=== PATIENT | female | born 1970 | race Caucasian/White ===

== ENCOUNTER 2016-07-25 10:33 | Emergency (ER) | payer OTHER ==
[~2016-07-25] VITALS: Ht 165.1 cm; Wt 70.4 kg
[~2016-07-25 10:33] MED LIST: 8 HOUR PAIN RE650 M1 PO; ALPRAZOLAM0.25 M2 PO; BENADRYL25 MG PO; BISACODYL5 MG PO; CELECOXIB200 MG PO; COMBIVENT RESPIM4 GM IH; ELAVIL25 MG PO; FERROUS SULFAT325 MG PO; LAMICTAL200 MG PO; LEXAPRO PO; MILK OF MAGNESI10 ML PO; MOBIC15 MG PO; NORCO 5/3251 TABLET PO; OXYCODONE HCL5 MG PO; OXYCONTIN10 MG PO; ROXICODONE5 MG PO; TOPAMAX100 MG PO; TYLENOL REGULA325 MG PO; VITAMIN D31000 UNIT PO; WELLBUTRIN XL150 MG PO
[2016-07-25] MEDS ORDERED: PERCOCET 10/1 TABLET PO (12:11)
[2016-07-25 13:00] VITALS: BP 110/74
[2016-07-25] MEDS ORDERED: BENADRYL25 MG PO (13:14)
== END 2016-07-25 13:00 | disposition home or self-care (01) ==
LOC: EME 10:33
DX: F19.10 Other psychoactive substance abuse, uncomplicated (principal); F31.9 Bipolar disorder, unspecified; G89.29 Other chronic pain; Z79.891 Long term (current) use of opiate analgesic; J44.9 Chronic obstructive pulmonary disease, unspecified; F17.200 Nicotine dependence, unspecified, uncomplicated
CPT/HCPCS: 90839; 99281; 99284

== ENCOUNTER 2017-06-14 13:00 | Emergency (ER) | payer OTHER ==
[~2017-06-14] VITALS: Ht 162.6 cm; Wt 74.3 kg
[~2017-06-14 13:00] MED LIST changes: -COMBIVENT RESPIM4 GM IH; +PERCOCET 10/1 TABLET PO
[2017-06-14 13:09] VITALS: BP 117/71
[2017-06-14] MEDS ORDERED: COMBIVENT RESPIM4 GM IH (20:42)
[2017-06-14] MEDS ORDERED: CLONIDINE HCL0.1 MG PO (20:43)
[2017-06-14] MEDS ORDERED: SUBOXONE 8 MG-1 EAC2 SL ×2 (20:45→20:51)
[2017-06-14] MEDS ORDERED: NORTRIPTYLINE H25 MG PO (20:47)
[2017-06-14] MEDS ORDERED: GABAPENTIN300 MG PO (20:48)
== END 2017-06-14 15:18 | disposition left against medical advice (07) ==
LOC: EME 13:00
DX: R29.818 Other symptoms and signs involving the nervous system (principal); Z53.21 Procedure and treatment not carried out due to patient leaving prior to being seen by health care provider

== ENCOUNTER 2017-06-14 17:18 | Inpatient (IN) | payer OTHER ==
[~2017-06-14] VITALS: Ht 163.8 cm; Wt 71.3 kg
[2017-06-14 18:53] LABS: COMMENTS - BLOOD GASES A+C+; DEVICE RA; SITE LR; TOTAL RESP RATE 18 resp/min
[2017-06-14 18:54] LABS: BICARBONATE 25.2 mEq/L (22-26); CARBOXY HGB 11.8 % (0-5); METHEMOGLOBIN 1.9 % (0-1.5); PCO2 38 mm Hg (35-45); PO2 68 mm Hg (80-100); pH 7.43 (7.35-7.45)
[2017-06-14 19:09] LABS: CHLORIDE 101 mEq/L (99-109); POTASSIUM 3.9 mEq/L (3.7-5.4); SODIUM 134 mEq/L (136-147)
[2017-06-14 19:10] LABS: MAGNESIUM 1.7 mg/dL (1.3-2.7)
[2017-06-14 19:12] LABS: GLUCOSE 105 mg/dL (70-99); TOTAL PROTEIN 6.9 g/dL (6.4-8.3)
[2017-06-14 19:14] LABS: TOTAL BILIRUBIN 0.6 mg/dL (0.0-1.0)
[2017-06-14 19:15] LABS: ALKALINE PHOSPHATASE 79 IU/L (3-129); PHOSPHORUS 3.3 mg/dL (2.5-4.9); SERUM ETHYL ALCOHOL < 10 mg/dL
[2017-06-14 19:16] LABS: CREATININE 0.9 mg/dL (0.6-1.3); GFR ESTIMATE (CALCULATED) > 59 mL/min/
[2017-06-14 19:17] LABS: AST (GOT) 24 IU/L (2-34); UREA NITROGEN (BUN) 13 mg/dL (9-23)
[2017-06-14 19:19] LABS: ALT (GPT) 19 IU/L (3-49); LIPASE 11 U/L (1.0-51.0)
[2017-06-14 19:21] LABS: HEMATOCRIT 35.8 % (36.0-46.0); MCH 31.7 PG (29.0-34.0); MCHC 33.5 G/DL (30.0-36.0); MCV 94.5 FL (83-99); PLATELET COUNT 117 K/uL (156-360); RBC DIS.WIDTH-CV 12.2 % (11.8-14.6); RBC DIS.WIDTH-SD 42.6 % (39-53); RED BLOOD COUNT 3.79 M/uL (3.80-5.20); WHITE BLOOD COUNT 9.1 K/uL (4.1-10.2)
[2017-06-14 19:25] LABS: QUANTITATIVE HCG < 4.0 MIU/ML
[2017-06-14] MEDS ORDERED: COMBIVENT RESPIM4 GM IH (20:42)
[2017-06-14] MEDS ORDERED: CLONIDINE HCL0.1 MG PO (20:43)
[2017-06-14] MEDS ORDERED: SUBOXONE 8 MG-1 EAC2 SL ×2 (20:45→20:51)
[2017-06-14] MEDS ORDERED: NORTRIPTYLINE H25 MG PO (20:47)
[2017-06-14] MEDS ORDERED: GABAPENTIN300 MG PO (20:48)
[2017-06-14 21:40] LABS: APPEARANCE SL.HAZY ((CLEAR)); BILIRUBIN NEGATIVE; BLOOD NEGATIVE; COLOR AMBER ((YELLOW)); GLUCOSE (STRIP) NEGATIVE; KETONES NEGATIVE; LEUKOCYTES LARGE; NITRITE POSITIVE; PROTEIN (STRIP) NEGATIVE; SPECIFIC GRAVITY 1.013 (1.000-1.030); UROBILINOGEN 0.2 MG/DL (0.2-1.0)
[2017-06-14 21:54] LABS: AMPHETAMINE NEGATIVE (500 ng/mL); BARBITURATES NEGATIVE (200 ng/mL); BENZODIAZEPINES PRESUMPTIVE POSITIVE (150 ng/mL); BUPRENORPHINE PRESUMPTIVE POSITIVE (10 ng/mL); COCAINE NEGATIVE (150 ng/mL); METHADONE NEGATIVE (200 ng/mL); METHAMPHETAMINE NEGATIVE (500 ng/mL); OPIATES (MORPHINE) NEGATIVE (100 ng/mL); OXYCODONE NEGATIVE (100 ng/mL); PHENCYCLIDINE NEGATIVE (25 ng/mL); PROPOXYPHENE NEGATIVE (300 ng/mL); THC CANNABINOIDS NEGATIVE (50 ng/mL); TRICYCLIC ANTIDEPRESSANTS PRESUMPTIVE POSITIVE (300 ng/mL)
[2017-06-14 21:55] LABS: BACTERIA RARE /HPF; EPITHELIAL CELLS RARE /HPF; MUCUS TRACE /LPF; RED BLOOD CELLS 0-5 /HPF (0-5); UCUL ADDED? YES; WHITE BLOOD CELLS TNTC /HPF (0-5)
[2017-06-14 22:43] LABS: BENZODIAZEPINES, URINE SCREEN Negative (200 ng/mL)
[2017-06-15 01:17] LABS: BASE EXCESS -0.7 mEq/L (-3 to +3); BICARBONATE 25.8 mEq/L (22-26); CARBOXY HGB 5.1 % (0-5); PCO2 49 mm Hg (35-45); PO2 84 mm Hg (80-100); SITE RR; pH 7.33 (7.35-7.45)
[2017-06-15 01:18] LABS: COMMENTS - BLOOD GASES C+; DEVICE NC; O2 FLOW 2 L/MIN; TOTAL RESP RATE 16 resp/min
[2017-06-15 01:28] LABS: BASOPHIL (%) 0.4 % (0-1); EOSINOPHIL (%) 0.6 % (0-5); HEMATOCRIT 37.6 % (36.0-46.0); HEMOGLOBIN 12.3 G/DL (11.9-15.5); IMMATURE GRANULOCYTE (%) 0.4 % (0.0-0.7); LYMPHOCYTE (%) 15.2 % (15-42); MCH 31.2 PG (29.0-34.0); MCHC 32.7 G/DL (30.0-36.0); MCV 95.4 FL (83-99); MONOCYTE (%) 6.3 % (3-12); MONOCYTE COUNT 0.4 K/uL (0-0.8); NEUTROPHIL (%) 77.1 % (45-76); NEUTROPHIL COUNT 5.2 K/uL (1.8-6.4); PLATELET COUNT 114 K/uL (156-360); RBC DIS.WIDTH-CV 12.2 % (11.8-14.6); RBC DIS.WIDTH-SD 42.7 % (39-53); RED BLOOD COUNT 3.94 M/uL (3.80-5.20); WHITE BLOOD COUNT 6.8 K/uL (4.1-10.2)
[2017-06-15 01:39] LABS: ALBUMIN 3.3 g/dL (3.2-4.8); CHLORIDE 109 mEq/L (99-109); POTASSIUM 3.7 mEq/L (3.7-5.4)
[2017-06-15 01:41] LABS: GLUCOSE 120 mg/dL (70-99)
[2017-06-15 01:42] LABS: SODIUM 141 mEq/L (136-147); TOTAL PROTEIN 5.5 g/dL (6.4-8.3)
[2017-06-15 01:45] LABS: ALKALINE PHOSPHATASE 65 IU/L (3-129); CREATININE 0.8 mg/dL (0.6-1.3); GFR ESTIMATE (CALCULATED) > 59 mL/min/
[2017-06-15 01:46] LABS: UREA NITROGEN (BUN) 12 mg/dL (9-23)
[2017-06-15 01:47] LABS: AST (GOT) 19 IU/L (2-34)
[2017-06-15 01:48] LABS: ALT (GPT) 16 IU/L (3-49); TOTAL BILIRUBIN 0.4 mg/dL (0.0-1.0)
[2017-06-15 08:05] VITALS: BP 142/86
[2017-06-15 11:30] VITALS: BP 112/58
[2017-06-15 16:09] VITALS: BP 92/54
[2017-06-15 18:11] LABS: BASOPHIL (%) 0.3 % (0-1); EOSINOPHIL (%) 0.3 % (0-5); HEMATOCRIT 35.4 % (36.0-46.0); HEMOGLOBIN 11.5 G/DL (11.9-15.5); IMMATURE GRANULOCYTE (%) 0.5 % (0.0-0.7); LYMPHOCYTE (%) 15.5 % (15-42); LYMPHOCYTE COUNT 0.9 K/uL (1.0-2.8); MCH 31.4 PG (29.0-34.0); MCHC 32.5 G/DL (30.0-36.0); MCV 96.7 FL (83-99); MONOCYTE (%) 5.4 % (3-12); MONOCYTE COUNT 0.3 K/uL (0-0.8); NEUTROPHIL COUNT 4.5 K/uL (1.8-6.4); PLATELET COUNT 104 K/uL (156-360); RBC DIS.WIDTH-CV 12.4 % (11.8-14.6); RBC DIS.WIDTH-SD 44.4 % (39-53); RED BLOOD COUNT 3.66 M/uL (3.80-5.20); WHITE BLOOD COUNT 5.7 K/uL (4.1-10.2)
[2017-06-15 18:33] LABS: ALBUMIN 3.3 G/DL (3.2-4.8); ALKALINE PHOSPHATASE 53 IU/L (3-129); ALT (GPT) 15 IU/L (3-49); AST (GOT) 26 IU/L (2-34); CHLORIDE 104 MEQ/L (99-109); CREATININE 0.8 MG/DL (0.6-1.3); GFR ESTIMATE (CALCULATED) > 59 mL/min/; GLUCOSE 145 mg/dL (70-99); POTASSIUM 3.8 MEQ/L (3.7-5.4); SODIUM 136 MEQ/L (136-147); TOTAL BILIRUBIN 0.4 MG/DL (0.0-1.0); TOTAL PROTEIN 5.3 G/DL (6.4-8.3); UREA NITROGEN (BUN) 10 mg/dL (9-23)
[2017-06-15 19:40] VITALS: BP 103/59
[2017-06-15 23:44] VITALS: BP 114/58
[2017-06-16 04:27] VITALS: BP 113/66
[2017-06-16 05:10] LABS: BASOPHIL (%) 0.3 % (0-1); EOSINOPHIL (%) 0 % (0-5); HEMATOCRIT 33.4 % (36.0-46.0); HEMOGLOBIN 10.6 G/DL (11.9-15.5); IMMATURE GRANULOCYTE (%) 0.5 % (0.0-0.7); LYMPHOCYTE (%) 13.6 % (15-42); LYMPHOCYTE COUNT 1.1 K/uL (1.0-2.8); MCH 30.1 PG (29.0-34.0); MCHC 31.7 G/DL (30.0-36.0); MCV 94.9 FL (83-99); MONOCYTE (%) 4.4 % (3-12); MONOCYTE COUNT 0.3 K/uL (0-0.8); NEUTROPHIL (%) 81.2 % (45-76); NEUTROPHIL COUNT 6.3 K/uL (1.8-6.4); PLATELET COUNT 108 K/uL (156-360); RBC DIS.WIDTH-CV 12.4 % (11.8-14.6); RBC DIS.WIDTH-SD 43.1 % (39-53); RED BLOOD COUNT 3.52 M/uL (3.80-5.20); WHITE BLOOD COUNT 7.7 K/uL (4.1-10.2)
[2017-06-16 05:37] LABS: CHLORIDE 107 MEQ/L (99-109); CREATININE 0.8 MG/DL (0.6-1.3); GFR ESTIMATE (CALCULATED) > 59 mL/min/; GLUCOSE 97 mg/dL (70-99); POTASSIUM 4.2 MEQ/L (3.7-5.4); SODIUM 136 MEQ/L (136-147); UREA NITROGEN (BUN) 10 mg/dL (9-23)
[2017-06-16 08:40] VITALS: BP 98/58
[2017-06-16 11:39] VITALS: BP 120/59
[2017-06-16 18:42] VITALS: BP 144/72
[2017-06-16 19:34] VITALS: BP 124/71
[2017-06-17] VITALS: BP 105/60
[2017-06-17 04:10] VITALS: BP 121/61
[2017-06-17 06:36] LABS: BASOPHIL (%) 0.2 % (0-1); EOSINOPHIL (%) 0.2 % (0-5); HEMATOCRIT 33.6 % (36.0-46.0); HEMOGLOBIN 10.6 G/DL (11.9-15.5); IMMATURE GRANULOCYTE (%) 0.3 % (0.0-0.7); LYMPHOCYTE (%) 11.1 % (15-42); LYMPHOCYTE COUNT 0.7 K/uL (1.0-2.8); MCHC 31.5 G/DL (30.0-36.0); MCV 95.2 FL (83-99); MONOCYTE COUNT 0.3 K/uL (0-0.8); NEUTROPHIL (%) 84.2 % (45-76); NEUTROPHIL COUNT 5.4 K/uL (1.8-6.4); PLATELET COUNT 120 K/uL (156-360); RBC DIS.WIDTH-CV 12.8 % (11.8-14.6); RBC DIS.WIDTH-SD 44.3 % (39-53); RED BLOOD COUNT 3.53 M/uL (3.80-5.20); WHITE BLOOD COUNT 6.5 K/uL (4.1-10.2)
[2017-06-17 07:12] LABS: CHLORIDE 102 MEQ/L (99-109); CREATININE 0.7 MG/DL (0.6-1.3); GFR ESTIMATE (CALCULATED) > 59 mL/min/; GLUCOSE 83 mg/dL (70-99); POTASSIUM 4.5 MEQ/L (3.7-5.4); SODIUM 138 MEQ/L (136-147); UREA NITROGEN (BUN) 9 mg/dL (9-23)
[2017-06-17 07:25] VITALS: BP 103/65
[2017-06-17 11:32] VITALS: BP 124/56
[2017-06-17 15:46] VITALS: BP 128/59
[2017-06-17 20:00] VITALS: BP 127/60
[2017-06-18] VITALS: BP 133/81
[2017-06-18 04:03] VITALS: BP 116/78
[2017-06-18 06:55] LABS: BASOPHIL (%) 0.1 % (0-1); EOSINOPHIL (%) 0 % (0-5); HEMATOCRIT 36.1 % (36.0-46.0); HEMOGLOBIN 11.6 G/DL (11.9-15.5); IMMATURE GRANULOCYTE (%) 0.9 % (0.0-0.7); LYMPHOCYTE (%) 7.3 % (15-42); LYMPHOCYTE COUNT 0.5 K/uL (1.0-2.8); MCH 30.1 PG (29.0-34.0); MCHC 32.1 G/DL (30.0-36.0); MCV 93.8 FL (83-99); MONOCYTE (%) 3.1 % (3-12); MONOCYTE COUNT 0.2 K/uL (0-0.8); NEUTROPHIL (%) 88.6 % (45-76); PLATELET COUNT 135 K/uL (156-360); RBC DIS.WIDTH-CV 12.7 % (11.8-14.6); RBC DIS.WIDTH-SD 43.8 % (39-53); RED BLOOD COUNT 3.85 M/uL (3.80-5.20); WHITE BLOOD COUNT 6.8 K/uL (4.1-10.2)
[2017-06-18 07:11] LABS: CHLORIDE 106 MEQ/L (99-109); CREATININE 0.5 MG/DL (0.6-1.3); GFR ESTIMATE (CALCULATED) > 59 mL/min/; POTASSIUM 4.1 MEQ/L (3.7-5.4); SODIUM 141 MEQ/L (136-147); UREA NITROGEN (BUN) 12 mg/dL (9-23)
[2017-06-18 07:13] LABS: GLUCOSE 168 mg/dL (70-99)
[2017-06-18 08:00] VITALS: BP 129/70
[2017-06-18 11:43] VITALS: BP 111/61
[2017-06-18 15:30] VITALS: BP 125/82
[2017-06-18 23:49] VITALS: BP 128/76
[2017-06-19 06:39] LABS: BASOPHIL (%) 0.1 % (0-1); EOSINOPHIL (%) 0 % (0-5); HEMATOCRIT 33.6 % (36.0-46.0); HEMOGLOBIN 10.8 G/DL (11.9-15.5); IMMATURE GRANULOCYTE (%) 1.4 % (0.0-0.7); LYMPHOCYTE (%) 6.4 % (15-42); LYMPHOCYTE COUNT 0.5 K/uL (1.0-2.8); MCH 30.5 PG (29.0-34.0); MCHC 32.1 G/DL (30.0-36.0); MCV 94.9 FL (83-99); MONOCYTE (%) 2.9 % (3-12); MONOCYTE COUNT 0.2 K/uL (0-0.8); NEUTROPHIL (%) 89.2 % (45-76); NEUTROPHIL COUNT 7.5 K/uL (1.8-6.4); PLATELET COUNT 150 K/uL (156-360); RBC DIS.WIDTH-SD 45.5 % (39-53); RED BLOOD COUNT 3.54 M/uL (3.80-5.20); WHITE BLOOD COUNT 8.4 K/uL (4.1-10.2)
[2017-06-19 07:02] LABS: CHLORIDE 104 MEQ/L (99-109); CREATININE 0.5 MG/DL (0.6-1.3); GFR ESTIMATE (CALCULATED) > 59 mL/min/; GLUCOSE 152 mg/dL (70-99); POTASSIUM 3.8 MEQ/L (3.7-5.4); SODIUM 140 MEQ/L (136-147); UREA NITROGEN (BUN) 14 mg/dL (9-23)
[2017-06-19 07:23] VITALS: BP 138/65
[2017-06-19 15:22] VITALS: BP 123/89
[2017-06-20 00:09] VITALS: BP 140/88
[2017-06-20 06:31] LABS: HEMATOCRIT 34.5 % (36.0-46.0); HEMOGLOBIN 11.2 G/DL (11.9-15.5); MCH 30.8 PG (29.0-34.0); MCHC 32.5 G/DL (30.0-36.0); MCV 94.8 FL (83-99); PLATELET COUNT 135 K/uL (156-360); RED BLOOD COUNT 3.64 M/uL (3.80-5.20); WHITE BLOOD COUNT 6.3 K/uL (4.1-10.2)
[2017-06-20 06:56] LABS: BASOPHIL (%) 0.2 % (0-1); EOSINOPHIL (%) 0 % (0-5); IMMATURE GRANULOCYTE (%) 2.5 % (0.0-0.7); LYMPHOCYTE (%) 11.9 % (15-42); LYMPHOCYTE COUNT 0.8 K/uL (1.0-2.8); MONOCYTE (%) 4.3 % (3-12); MONOCYTE COUNT 0.3 K/uL (0-0.8); NEUTROPHIL (%) 81.1 % (45-76); NEUTROPHIL COUNT 5.1 K/uL (1.8-6.4)
[2017-06-20 07:02] LABS: CHLORIDE 104 MEQ/L (99-109); CREATININE 0.6 MG/DL (0.6-1.3); GFR ESTIMATE (CALCULATED) > 59 mL/min/; GLUCOSE 138 mg/dL (70-99); SODIUM 142 MEQ/L (136-147); UREA NITROGEN (BUN) 12 mg/dL (9-23)
[2017-06-20 07:04] LABS: POTASSIUM 4.6 MEQ/L (3.7-5.4)
[2017-06-20 07:39] VITALS: BP 131/76
[2017-06-20 16:01] VITALS: BP 136/83
[2017-06-21 00:04] VITALS: BP 135/78
[2017-06-21 06:32] LABS: HEMOGLOBIN 11.8 G/DL (11.9-15.5); MCH 29.7 PG (29.0-34.0); MCHC 31.1 G/DL (30.0-36.0); MCV 95.7 FL (83-99); RBC DIS.WIDTH-SD 46.1 % (39-53); RED BLOOD COUNT 3.97 M/uL (3.80-5.20); WHITE BLOOD COUNT 7.4 K/uL (4.1-10.2)
[2017-06-21 06:38] LABS: PLATELET COUNT 192 K/uL (156-360)
[2017-06-21 07:01] LABS: ABS NEUTROPHIL COUNT 6.5; BAND NEUTROPHILS 0.9 % (0-8.0); EOSINOPHIL ABS CT 0; LYMPHOCYTES 7.8 % (15.0-45.0); METAMYELOCYTES 0.9 %; MONOCYTES 0.9 % (0-9.0); MYELOCYTES 2.6 %; PLAT.SUFFICIENCY ADEQUATE; SEG.NEUTROPHILS 86.9 % (46.0-76.0)
[2017-06-21 07:07] LABS: CHLORIDE 101 MEQ/L (99-109); CREATININE 0.6 MG/DL (0.6-1.3); GFR ESTIMATE (CALCULATED) > 59 mL/min/; GLUCOSE 141 mg/dL (70-99); POTASSIUM 4.7 MEQ/L (3.7-5.4); SODIUM 142 MEQ/L (136-147); UREA NITROGEN (BUN) 11 mg/dL (9-23)
[2017-06-21 07:29] VITALS: BP 153/97
[2017-06-21 15:42] VITALS: BP 148/92
[2017-06-21 23:59] VITALS: BP 139/88
[2017-06-22 07:17] LABS: CHLORIDE 99 MEQ/L (99-109); CREATININE 0.6 MG/DL (0.6-1.3); GFR ESTIMATE (CALCULATED) > 59 mL/min/; GLUCOSE 149 mg/dL (70-99); POTASSIUM 4.3 MEQ/L (3.7-5.4); SODIUM 139 MEQ/L (136-147); UREA NITROGEN (BUN) 14 mg/dL (9-23)
[2017-06-22 07:19] LABS: HEMATOCRIT 38.8 % (36.0-46.0); HEMOGLOBIN 12.6 G/DL (11.9-15.5); MCH 30.6 PG (29.0-34.0); MCHC 32.5 G/DL (30.0-36.0); MCV 94.2 FL (83-99); RBC DIS.WIDTH-CV 12.7 % (11.8-14.6); RBC DIS.WIDTH-SD 44.2 % (39-53); RED BLOOD COUNT 4.12 M/uL (3.80-5.20); WHITE BLOOD COUNT 8.7 K/uL (4.1-10.2)
[2017-06-22 07:39] LABS: ABS NEUTROPHIL COUNT 7.7; ATYPICAL LYMPHOCYTE 2.6 %; BAND NEUTROPHILS 0.9 % (0-8.0); EOSINOPHIL ABS CT 0; LYMPHOCYTES 3.5 % (15.0-45.0); METAMYELOCYTES 2.6 %; MONOCYTES 2.7 % (0-9.0); PLAT.SUFFICIENCY ADEQUATE; SEG.NEUTROPHILS 87.7 % (46.0-76.0)
[2017-06-22 07:41] LABS: PLATELET COUNT 257 K/uL (156-360)
[2017-06-22 08:18] VITALS: BP 156/92
[2017-06-22] MEDS ORDERED: BUPROPION HCL100 MG PO (15:18)
[2017-06-22] MEDS ORDERED: ADVAIR 250/501 DISK IH (15:19)
[2017-06-22] MEDS ORDERED: PREDNISONE5 M1 PO (15:22)
[2017-06-22] MEDS ORDERED: LEVAQUIN750 MG PO (15:23)
[2017-06-22] MEDS ORDERED: FOLIC ACID1 MG PO (15:27)
[2017-06-22] MEDS ORDERED: THIAMINE HCL100 MG PO (15:28)
[2017-06-22 16:14] VITALS: BP 150/88
== END 2017-06-22 16:38 | disposition home or self-care (01) | DRG 193 ==
LOC: EME 17:18 → EDOF 06-15 05:34 → 4EAST 06-15 05:34 → ENRESERV 06-15 05:36 → 4EAST 06-15 08:09 → ENRESERV 06-16 15:26 → 5SOUTH 06-16 18:08
PROVIDERS: Hospitalist; Internal Medicine; Physician Assistant
DX: J15.9 Unspecified bacterial pneumonia (principal); J96.01 Acute respiratory failure with hypoxia; G92 Toxic encephalopathy; J44.0 Chronic obstructive pulmonary disease with (acute) lower respiratory infection; I95.9 Hypotension, unspecified; F11.20 Opioid dependence, uncomplicated; N39.0 Urinary tract infection, site not specified; B96.20 Unspecified Escherichia coli [E. coli] as the cause of diseases classified elsewhere; T43.011A Poisoning by tricyclic antidepressants, accidental (unintentional), initial encounter; I10 Essential (primary) hypertension; F41.1 Generalized anxiety disorder; F19.10 Other psychoactive substance abuse, uncomplicated; F10.10 Alcohol abuse, uncomplicated; Y90.0 Blood alcohol level of less than 20 mg/100 ml; F31.9 Bipolar disorder, unspecified; G89.4 Chronic pain syndrome; M17.0 Bilateral primary osteoarthritis of knee; F17.200 Nicotine dependence, unspecified, uncomplicated; Z86.73 Personal history of transient ischemic attack (TIA), and cerebral infarction without residual deficits
CPT/HCPCS: 36600; 70450; 71045; 71046; 71250; 71275; 80048; 80053; 81003; 82140; 82803; 83605; 83690; 83735; 84100; 84588 90; 84702; 84999; 85025; 85025 91; 85027; 87040; 87077; 87086; 87186; 87502; 93005; 94640; 94640 76; 94799; 99202; 99281; 99285; C1751; G0480; J0456; J0572; J0574; J0696; J1650; J1885; J2060; J2310; J2543; J2920; J3411; J7030; J7040; J7050; J7512

== ENCOUNTER 2017-08-17 08:46 | Inpatient (IN) | payer OTHER ==
[~2017-08-17] VITALS: Ht 167.6 cm; Wt 81.6 kg
[~2017-08-17 08:46] MED LIST changes: +ADVAIR 250/501 DISK IH; +BUPROPION HCL100 MG PO; +CLONIDINE HCL0.1 MG PO; +COMBIVENT RESPIM4 GM IH; +FOLIC ACID1 MG PO; +GABAPENTIN300 MG PO; +LEVAQUIN750 MG PO; +NORTRIPTYLINE H25 MG PO; +PREDNISONE5 M1 PO; +SUBOXONE 8 MG-1 EAC2 SL; +THIAMINE HCL100 MG PO
[2017-08-17 09:25] LABS: BASOPHIL (%) 0.2 % (0-1); EOSINOPHIL (%) 0.3 % (0-5); HEMATOCRIT 34.6 % (36.0-46.0); HEMOGLOBIN 11.5 G/DL (11.9-15.5); LYMPHOCYTE (%) 7.8 % (15-42); LYMPHOCYTE COUNT 1.1 K/uL (1.0-2.8); MCH 31.4 PG (29.0-34.0); MCHC 33.2 G/DL (30.0-36.0); MCV 94.5 FL (83-99); MONOCYTE (%) 5.2 % (3-12); MONOCYTE COUNT 0.8 K/uL (0-0.8); NEUTROPHIL (%) 85.5 % (45-76); NEUTROPHIL COUNT 12.3 K/uL (1.8-6.4); PLATELET COUNT 142 K/uL (156-360); RBC DIS.WIDTH-SD 48.6 % (39-53); RED BLOOD COUNT 3.66 M/uL (3.80-5.20); WHITE BLOOD COUNT 14.4 K/uL (4.1-10.2)
[2017-08-17 09:34] LABS: CHLORIDE 105 mEq/L (99-109); POTASSIUM 4.2 mEq/L (3.7-5.4); SODIUM 136 mEq/L (136-147)
[2017-08-17 09:35] LABS: GLUCOSE 112 mg/dL (70-99)
[2017-08-17 09:39] LABS: CREATININE 1.2 mg/dL (0.6-1.3); GFR ESTIMATE (CALCULATED) 51 mL/min/; SERUM ETHYL ALCOHOL < 10 mg/dL
[2017-08-17 09:40] LABS: UREA NITROGEN (BUN) 21 mg/dL (9-23)
[2017-08-17 10:36] LABS: BILIRUBIN NEGATIVE; BLOOD NEGATIVE; COLOR YELLOW ((YELLOW)); GLUCOSE (STRIP) NEGATIVE; KETONES NEGATIVE; LEUKOCYTES NEGATIVE; NITRITE NEGATIVE; PROTEIN (STRIP) 30; SPECIFIC GRAVITY 1.015 (1.000-1.030); UROBILINOGEN 0.2 MG/DL (0.2-1.0)
[2017-08-17 10:37] LABS: APPEARANCE CLEAR ((CLEAR))
[2017-08-17 10:50] LABS: MAGNESIUM 1.8 mg/dL (1.3-2.7)
[2017-08-17 10:52] LABS: AMPHETAMINE NEGATIVE (500 ng/mL); BARBITURATES NEGATIVE (200 ng/mL); BENZODIAZEPINES NEGATIVE (150 ng/mL); BUPRENORPHINE NEGATIVE (10 ng/mL); COCAINE NEGATIVE (150 ng/mL); METHADONE PRESUMPTIVE POSITIVE (200 ng/mL); METHAMPHETAMINE NEGATIVE (500 ng/mL); OPIATES (MORPHINE) NEGATIVE (100 ng/mL); OXYCODONE NEGATIVE (100 ng/mL); PHENCYCLIDINE NEGATIVE (25 ng/mL); PROPOXYPHENE NEGATIVE (300 ng/mL); THC CANNABINOIDS NEGATIVE (50 ng/mL); TRICYCLIC ANTIDEPRESSANTS PRESUMPTIVE POSITIVE (300 ng/mL)
[2017-08-17] MEDS ORDERED: NEURONTIN600 MG PO (10:54)
[2017-08-17] MEDS ORDERED: NORTRIPTYLINE H25 MG PO (10:56)
[2017-08-17] MEDS ORDERED: DESYREL100 MG PO (10:57)
[2017-08-17] MEDS ORDERED: ESCITALOPRAM OX20 MG PO (10:57)
[2017-08-17] MEDS ORDERED: METHADOSE10 MG/1 ML PO ×2 (11:13→11:14)
[2017-08-17 16:13] VITALS: BP 113/70
[2017-08-17 21:18] VITALS: BP 108/50
[2017-08-17 22:31] VITALS: BP 97/63
[2017-08-18] VITALS (7 sets, daily range): BP systolic 97–138; BP diastolic 54–96
[2017-08-18 06:56] LABS: BASOPHIL (%) 0.2 % (0-1); EOSINOPHIL (%) 0.1 % (0-5); HEMATOCRIT 33.8 % (36.0-46.0); HEMOGLOBIN 10.9 G/DL (11.9-15.5); IMMATURE GRANULOCYTE (%) 1.6 % (0.0-0.7); LYMPHOCYTE (%) 7.7 % (15-42); LYMPHOCYTE COUNT 0.7 K/uL (1.0-2.8); MCH 31.1 PG (29.0-34.0); MCHC 32.2 G/DL (30.0-36.0); MCV 96.3 FL (83-99); MONOCYTE COUNT 0.3 K/uL (0-0.8); NEUTROPHIL (%) 87.4 % (45-76); NEUTROPHIL COUNT 7.6 K/uL (1.8-6.4); NRBC (%) 0.2 /100 WBC (0-0); PLATELET COUNT 127 K/uL (156-360); RBC DIS.WIDTH-CV 14.3 % (11.8-14.6); RBC DIS.WIDTH-SD 50.2 % (39-53); RED BLOOD COUNT 3.51 M/uL (3.80-5.20); WHITE BLOOD COUNT 8.7 K/uL (4.1-10.2)
[2017-08-18 07:14] LABS: CHLORIDE 114 MEQ/L (99-109); CREATININE 0.8 MG/DL (0.6-1.3); GFR ESTIMATE (CALCULATED) > 59 mL/min/; GLUCOSE 161 mg/dL (70-99); POTASSIUM 4.6 MEQ/L (3.7-5.4); SODIUM 141 MEQ/L (136-147); UREA NITROGEN (BUN) 18 mg/dL (9-23)
[2017-08-19 00:28] VITALS: BP 125/77
[2017-08-19 04:41] VITALS: BP 133/82
[2017-08-19 06:22] LABS: HEMATOCRIT 36.1 % (36.0-46.0); HEMOGLOBIN 11.7 G/DL (11.9-15.5); MCH 31.5 PG (29.0-34.0); MCHC 32.4 G/DL (30.0-36.0); MCV 97.3 FL (83-99); NRBC (%) 0.5 /100 WBC (0-0); RBC DIS.WIDTH-CV 14.6 % (11.8-14.6); RBC DIS.WIDTH-SD 52.1 % (39-53); RED BLOOD COUNT 3.71 M/uL (3.80-5.20); WHITE BLOOD COUNT 15.2 K/uL (4.1-10.2)
[2017-08-19 06:23] LABS: PLATELET COUNT 170 K/uL (156-360)
[2017-08-19 06:49] LABS: CHLORIDE 110 MEQ/L (99-109); CREATININE 0.7 MG/DL (0.6-1.3); GFR ESTIMATE (CALCULATED) > 59 mL/min/; SODIUM 143 MEQ/L (136-147); UREA NITROGEN (BUN) 14 mg/dL (9-23)
[2017-08-19 06:52] LABS: GLUCOSE 109 mg/dL (70-99)
[2017-08-19 08:08] VITALS: BP 131/83
[2017-08-19 11:32] VITALS: BP 126/90
[2017-08-19 15:38] VITALS: BP 154/88
[2017-08-19 20:20] VITALS: BP 132/75
[2017-08-20 00:40] VITALS: BP 145/86
[2017-08-20 04:20] VITALS: BP 132/70
[2017-08-20 06:34] LABS: HEMATOCRIT 36.5 % (36.0-46.0); HEMOGLOBIN 11.8 G/DL (11.9-15.5); MCH 30.4 PG (29.0-34.0); MCHC 32.3 G/DL (30.0-36.0); MCV 94.1 FL (83-99); NRBC (%) 0.2 /100 WBC (0-0); PLATELET COUNT 177 K/uL (156-360); RBC DIS.WIDTH-CV 14.4 % (11.8-14.6); RBC DIS.WIDTH-SD 49.1 % (39-53); RED BLOOD COUNT 3.88 M/uL (3.80-5.20); WHITE BLOOD COUNT 11.2 K/uL (4.1-10.2)
[2017-08-20 08:15] VITALS: BP 132/79
[2017-08-20 11:19] VITALS: BP 130/72
[2017-08-20] MEDS ORDERED: NICOTINE PATCH1 EAC2 TD (13:53)
[2017-08-20] MEDS ORDERED: Thiamine,Vitamin B1 PO (13:53)
[2017-08-20] MEDS ORDERED: AUGMENTIN875 MG PO (13:53)
[2017-08-20] MEDS ORDERED: PREDNISONE10 MG PO (13:53)
[2017-08-20] MEDS ORDERED: FOLIC ACID1 MG PO (13:53)
== END 2017-08-20 17:20 | disposition home or self-care (01) | DRG 177 ==
LOC: EME 08:46 → 5EAST 09:55 → EDOF 09:55 → ENRESERV 09:59 → 5EAST 15:26 → EDPENDDISDT 08-20 17:30 → EDPENDDISTM 08-20 17:30
PROVIDERS: Emergency Medicine; Internal Medicine
DX: J69.0 Pneumonitis due to inhalation of food and vomit (principal); J96.01 Acute respiratory failure with hypoxia; R41.0 Disorientation, unspecified; T40.3X5A Adverse effect of methadone, initial encounter; F10.10 Alcohol abuse, uncomplicated; F32.9 Major depressive disorder, single episode, unspecified; F11.10 Opioid abuse, uncomplicated; J44.9 Chronic obstructive pulmonary disease, unspecified; M54.2 Cervicalgia; G89.29 Other chronic pain; M54.9 Dorsalgia, unspecified; F17.210 Nicotine dependence, cigarettes, uncomplicated; F41.1 Generalized anxiety disorder; D64.9 Anemia, unspecified; Y95 Nosocomial condition; Z90.49 Acquired absence of other specified parts of digestive tract
CPT/HCPCS: 71045; 71250; 80048; 81003; 83605; 83735; 85025; 85027; 87040; 87070; 87205; 87449; 94640; 94640 76; 94760; 94799; 99202; 99281; 99285; G0480; J1170; J1200; J1630; J1650; J1885; J2060; J2310; J2543; J2920; J3370; J7030; J7050